=== PATIENT | male | born 1960 | race African-American/Black ===

== ENCOUNTER 2021-11-22 18:24 | Inpatient (IN) | payer BC, OTHER ==
[2021-11-22] MEDS ORDERED: DEXTROSE 50%-WATER 25 GM/50 ML DISP.SYRIN ONE ×3 (18:43→18:47)
[2021-11-22] MEDS ORDERED: CEFEPIME HCL/D5W 2 GM/50 ML BAG IVPB ONE (18:55)
[2021-11-22] MEDS ORDERED: VANCOMYCIN/WATER 2 GM/400 ML PREMIX BAG IVPB ONE (18:55)
[2021-11-22] MEDS ORDERED: SODIUM CHLORIDE 0.9% 500 ML INFUS.BAG IV ONE (18:58)
[2021-11-22 20:24] LABS: BASO % 0.1 % (0-2.0); EOS % 0.1 % (0-4.5); HEMATOCRIT 26.8 % (35.4-49); HEMOGLOBIN 8.4 GM/dL (11.7-16.9); LYMPH % 2.9 % (8-40); MCH 25.1 pg (25.7-33.7); MCHC 31.5 g/dl (32.0-35.9); MEAN CELL VOLUME 79.6 fl (80-96); MEAN PLT VOLUME 7.5 fl (7.5-11.1); MONO % 3.6 % (3.8-10.2); NEUT % 93.3 % (42.8-82.8); PLATELET COUNT 379 10^3/uL (134-434); RBC 3.37 M/mm3 (4.00-5.60); RDW 18.5 % (11.9-15.9); WHITE BLOOD COUNT 12.3 K/mm3 (4.0-10.0)
[2021-11-22] MEDS ORDERED: CEFEPIME 2 GM/100 ML BAG IVPB ONE (20:31)
[2021-11-22 20:33] LABS: INR 1.28 (0.83-1.09); PROTHROMBIN TIME (PATIENT) 14.7 SEC (9.7-13.0)
[2021-11-22 20:35] LABS: ACTIVATED PTT 35.9 SECONDS (25.2-36.5)
[2021-11-22 20:42] LABS: CHLORIDE 97 mmol/L (98-107); SODIUM 135 mmol/L (136-145)
[2021-11-22 20:44] LABS: CALCIUM 7.8 mg/dL (8.5-10.1)
[2021-11-22 20:45] LABS: ALBUMIN 2.1 g/dl (3.4-5.0); ANION GAP 12 MMOL/L (8-16); BLOOD UREA NITROGEN 48.6 mg/dL (7-18); CO2 27 mmol/L (21-32); GLUCOSE,RANDOM 248 mg/dL (74-106)
[2021-11-22 20:48] LABS: CREATININE 3.4 mg/dL (0.55-1.3); SGOT/AST 18 U/L (15-37); SGPT/ALT 18 U/L (13-61)
[2021-11-22 20:50] LABS: BILIRUBIN,TOTAL 0.2 mg/dL (0.2-1); TOT PROT 6.8 g/dl (6.4-8.2)
[2021-11-22 20:51] LABS: ALK PHOS 91 U/L (45-117)
[2021-11-22 20:52] LABS: VENOUS O2 SATURATION 29.1 % (70-80); VENOUS PH 7.265 (7.310-7.410)
[2021-11-22 20:55] LABS: ANISOCYTOSIS 2+; MACROCYTOSIS 0
[2021-11-22 21:05] LABS: EPI CELLS 10 /uL (0-25.1); HYALINE CASTS 1 /uL (0-3.1); PH,URINE 5.5 (5.0-8.0); URINE APPEARANCE CLEAR; URINE BACTERIA 73 /uL (0-1359); URINE BILIRUBIN NEGATIVE (NEGATIVE); URINE COLOR YELLOW; URINE GLUCOSE (UA) NEGATIVE (NEGATIVE); URINE KETONE NEGATIVE (NEGATIVE); URINE LEUK ESTERASE NEGATIVE (NEGATIVE); URINE NITRITE NEGATIVE (NEGATIVE); URINE PROTEIN 2+ (NEGATIVE); URINE RBC 41 /uL (0-23.9); URINE UROBILINOGEN 0.2 mg/dL (0.2-1.0); URINE WBC 8 /uL (0-25.8)
[2021-11-22 21:20] LABS: N-TERMINAL BNP 3324.8 pg/ml (5-125)
[2021-11-22 21:24] LABS: ERYTHROCYTE SEDIMENTATION RATE 108 mm/hr (0-20)
[2021-11-23] MEDS ORDERED: ALBUTEROL SO4 0.083% IH SOL 2.5 MG/3 ML VIAL.NEB. NEB SCH (08:00)
[2021-11-23] MEDS: CLOPIDOGREL BISULFATE 75 MG TABLET (FP) PO SCH (10:55)
[2021-11-23] MEDS: ASPIRIN 81 MG CHEWABLE TABLETS PO SCH (10:55)
[2021-11-23] MEDS: TIMOLOL MALEATE 0.25% GFS OPHTHALMIC SOLN 5 ML BOTTLE OU SCH (10:55)
[2021-11-23] MEDS: PANTOPRAZOLE 20 MG TABLET PO SCH (10:55)
[2021-11-23] MEDS ORDERED: ALBUTEROL SO4 0.083% IH SOL 2.5 MG/3 ML VIAL.NEB. NEB PRN (11:05)
[2021-11-23 11:10] LABS: BASO % 0.2 % (0-2.0); EOS % 0.1 % (0-4.5); HEMATOCRIT 27.7 % (35.4-49); HEMOGLOBIN 8.8 GM/dL (11.7-16.9); LYMPH % 3.7 % (8-40); MCH 25.1 pg (25.7-33.7); MCHC 31.8 g/dl (32.0-35.9); MEAN CELL VOLUME 78.7 fl (80-96); MEAN PLT VOLUME 7.2 fl (7.5-11.1); MONO % 8.1 % (3.8-10.2); NEUT % 87.9 % (42.8-82.8); PLATELET COUNT 351 10^3/uL (134-434); RBC 3.52 M/mm3 (4.00-5.60); RDW 18.4 % (11.9-15.9); WHITE BLOOD COUNT 11.6 K/mm3 (4.0-10.0)
[2021-11-23] MEDS: methylPREDNISolone NA SUCC 40 MG/1 ML VIAL IVPUSH SCH ×2 (11:21→17:07)
[2021-11-23] MEDS: ALBUTEROL SO4 2.5/IPRATROPIUM 0.5 INH SOL 3 ML VIAL.NEB. NEB SCH ×3 (11:47→20:20)
[2021-11-23 12:10] LABS: BILIRUBIN,TOTAL 0.4 mg/dL (0.2-1); BLOOD UREA NITROGEN 37.6 mg/dL (7-18); CALCIUM 8.1 mg/dL (8.5-10.1); CREATININE 2.1 mg/dL (0.55-1.3)
[2021-11-23 15:02] LABS: COCAINE, UR NEGATIVE (NEGATIVE); METHADONE, UR NEGATIVE (NEGATIVE); OPIATES, URI NEGATIVE (NEGATIVE); PHENCYCLIDINE,URINE NEGATIVE (NEGATIVE); URINE AMPHETAMINES NEGATIVE (NEGATIVE); URINE BARBITURATES NEGATIVE (NEGATIVE); URINE BENZODIAZEPINES NEGATIVE (NEGATIVE)
[2021-11-23] MEDS ORDERED: POTASSIUM CHLORIDE TABS 20 MEQ TABLET.ER (FP) PO ONE (15:15)
[2021-11-23] MEDS: ROSUVASTATIN CA 20 MG TABLET PO SCH (21:44)
[2021-11-23] MEDS: SENNOSIDES 8.6MG TABLET (FP) PO SCH (21:47)
[2021-11-23] MEDS ORDERED: VANCOMYCIN/WATER 1250 MG 1,250 MG/250 ML BAG IVPB SCH (22:00)
[2021-11-23] MEDS ORDERED: DEXTROSE 5%-WATER - 50 ML IVPB ONE (23:25)
[2021-11-23] MEDS ORDERED: AZTREONAM 1 GM VIAL (RESTRICTED TO ID) ONE (23:25)
[2021-11-23] MEDS: AZTREONAM 1 GM in DEXTROSE 5%-WATER - 50 ML IVPB SCH (23:39)
[2021-11-23] MEDS: LATANOPROST 0.005% OPHTH SOLN 2.5ML BOTTLE OU SCH (23:40)
[2021-11-23] MEDS: GABAPENTIN 100 MG CAPSULE PO SCH (23:45)
[2021-11-24] MEDS: DAPTOMYCIN IVPB SCH ×2 (00:08→22:09)
[2021-11-24] MEDS: SODIUM CHLORIDE IVPB SCH ×2 (00:08→22:09)
[2021-11-24] MEDS: ACETAMINOPHEN 500 MG TABLET (FP) PO PRN (00:09)
[2021-11-24] MEDS: methylPREDNISolone NA SUCC 40 MG/1 ML VIAL IVPUSH SCH ×3 (03:30→17:09)
[2021-11-24] MEDS ORDERED: AZTREONAM 1 GM VIAL (RESTRICTED TO ID) ONE ×3 (05:49→17:06)
[2021-11-24] MEDS ORDERED: DEXTROSE 5%-WATER - 50 ML IVPB ONE ×3 (05:49→17:06)
[2021-11-24] MEDS: AZTREONAM 1 GM in DEXTROSE 5%-WATER - 50 ML IVPB SCH ×3 (05:52→17:09)
[2021-11-24] MEDS: ALBUTEROL SO4 2.5/IPRATROPIUM 0.5 INH SOL 3 ML VIAL.NEB. NEB SCH ×4 (07:34→20:05)
[2021-11-24] MEDS ORDERED: guaiFENesin/D-M SUGAR-FREE/ACLHOL-FREE 5 ML UNIT DOSE PO PRN (09:22)
[2021-11-24] MEDS: CLOPIDOGREL BISULFATE 75 MG TABLET (FP) PO SCH (09:31)
[2021-11-24] MEDS: GABAPENTIN 100 MG CAPSULE PO SCH ×2 (09:31→22:08)
[2021-11-24] MEDS: ASPIRIN 81 MG CHEWABLE TABLETS PO SCH (09:31)
[2021-11-24] MEDS: PANTOPRAZOLE 20 MG TABLET PO SCH (09:31)
[2021-11-24] MEDS: TIMOLOL MALEATE 0.25% GFS OPHTHALMIC SOLN 5 ML BOTTLE OU SCH (09:32)
[2021-11-24 11:22] LABS: ARTERIAL BLD GAS O2 SATURATION 94.1 % (95-98); ARTERIAL BLOOD GAS BASE EXCESS 0.5 mmol/L (-2-2); ARTERIAL BLOOD GAS PO2 73.7 mmHg (80-100); ARTERIAL BLOOD GAS pH 7.358 (7.350-7.450)
[2021-11-24 11:23] LABS: ALLENS TEST POSITIVE
[2021-11-24 16:59] LABS: CALCIUM 8.2 mg/dL (8.5-10.1)
[2021-11-24 17:00] LABS: BLOOD UREA NITROGEN 41.7 mg/dL (7-18)
[2021-11-24 17:03] LABS: CREATININE 1.8 mg/dL (0.55-1.3)
[2021-11-24] MEDS ORDERED: POTASSIUM CHLORIDE TABS 20 MEQ TABLET.ER (FP) PO ONE (17:38)
[2021-11-24] MEDS ORDERED: VANCOMYCIN/WATER 1250 MG 1,250 MG/250 ML BAG IVPB SCH (22:00)
[2021-11-24] MEDS: ROSUVASTATIN CA 20 MG TABLET PO SCH (22:08)
[2021-11-24] MEDS: traMADol HCL 50 MG TABLET PO PRN (22:08)
[2021-11-24] MEDS: LATANOPROST 0.005% OPHTH SOLN 2.5ML BOTTLE OU SCH (22:09)
[2021-11-24] MEDS: SENNOSIDES 8.6MG TABLET (FP) PO SCH (22:15)
[2021-11-25] MEDS ORDERED: DEXTROSE 5%-WATER - 50 ML IVPB ONE ×3 (01:43→17:02)
[2021-11-25] MEDS ORDERED: AZTREONAM 1 GM VIAL (RESTRICTED TO ID) ONE ×3 (01:43→17:02)
[2021-11-25] MEDS: AZTREONAM 1 GM in DEXTROSE 5%-WATER - 50 ML IVPB SCH ×3 (01:54→17:15)
[2021-11-25] MEDS: methylPREDNISolone NA SUCC 40 MG/1 ML VIAL IVPUSH SCH (01:54)
[2021-11-25] MEDS: ALBUTEROL SO4 2.5/IPRATROPIUM 0.5 INH SOL 3 ML VIAL.NEB. NEB SCH ×4 (07:40→20:00)
[2021-11-25 08:21] LABS: CALCIUM 8.6 mg/dL (8.5-10.1)
[2021-11-25 08:22] LABS: BLOOD UREA NITROGEN 47.1 mg/dL (7-18)
[2021-11-25 08:25] LABS: CREATININE 1.8 mg/dL (0.55-1.3)
[2021-11-25] MEDS: GABAPENTIN 100 MG CAPSULE PO SCH ×2 (09:36→21:24)
[2021-11-25] MEDS: CLOPIDOGREL BISULFATE 75 MG TABLET (FP) PO SCH (09:36)
[2021-11-25] MEDS: PANTOPRAZOLE 20 MG TABLET PO SCH (09:36)
[2021-11-25] MEDS: ASPIRIN 81 MG CHEWABLE TABLETS PO SCH (09:36)
[2021-11-25] MEDS: traMADol HCL 50 MG TABLET PO PRN ×2 (09:41→21:25)
[2021-11-25] MEDS: TIMOLOL MALEATE 0.25% GFS OPHTHALMIC SOLN 5 ML BOTTLE OU SCH (09:47)
[2021-11-25] MEDS ORDERED: TORSEMIDE 20 MG TABLET (FP) PO ONE (12:25)
[2021-11-25] MEDS: AMINO ACIDS/PROTEIN HYDROLYS 30 ML LIQUID.PKT PO SCH (17:15)
[2021-11-25] MEDS: ASCORBIC ACID 500 MG TABLET (FP) PO SCH (21:24)
[2021-11-25] MEDS: ROSUVASTATIN CA 20 MG TABLET PO SCH (21:24)
[2021-11-25] MEDS: SODIUM CHLORIDE IVPB SCH (21:25)
[2021-11-25] MEDS: DAPTOMYCIN IVPB SCH (21:25)
[2021-11-25] MEDS: LATANOPROST 0.005% OPHTH SOLN 2.5ML BOTTLE OU SCH (21:26)
[2021-11-25] MEDS: HEPARIN NA (PORCINE) 5,000 UNITS/ML 1ML VIAL SQ SCH (21:26)
[2021-11-25] MEDS: SENNOSIDES 8.6MG TABLET (FP) PO SCH (21:33)
[2021-11-26] MEDS ORDERED: AZTREONAM 1 GM VIAL (RESTRICTED TO ID) ONE ×3 (03:36→16:48)
[2021-11-26] MEDS: AZTREONAM 1 GM in DEXTROSE 5%-WATER - 50 ML IVPB SCH ×3 (03:48→17:53)
[2021-11-26] MEDS: ALBUTEROL SO4 2.5/IPRATROPIUM 0.5 INH SOL 3 ML VIAL.NEB. NEB SCH ×4 (07:35→22:04)
[2021-11-26] MEDS: AMINO ACIDS/PROTEIN HYDROLYS 30 ML LIQUID.PKT PO SCH ×2 (08:03→17:12)
[2021-11-26 08:15] LABS: BASO % 0.1 % (0-2.0); EOS % 0.1 % (0-4.5); HEMATOCRIT 31.3 % (35.4-49); HEMOGLOBIN 9.8 GM/dL (11.7-16.9); LYMPH % 4.4 % (8-40); MCH 24.7 pg (25.7-33.7); MCHC 31.3 g/dl (32.0-35.9); MEAN CELL VOLUME 78.8 fl (80-96); MEAN PLT VOLUME 7.3 fl (7.5-11.1); MONO % 8.8 % (3.8-10.2); NEUT % 86.6 % (42.8-82.8); PLATELET COUNT 425 10^3/uL (134-434); RBC 3.97 M/mm3 (4.00-5.60); RDW 19.1 % (11.9-15.9); WHITE BLOOD COUNT 13.5 K/mm3 (4.0-10.0)
[2021-11-26] MEDS ORDERED: DEXTROSE 5%-WATER - 50 ML IVPB ONE ×2 (08:23→16:48)
[2021-11-26 08:44] LABS: CALCIUM 8.5 mg/dL (8.5-10.1)
[2021-11-26 08:47] LABS: CREATININE 1.8 mg/dL (0.55-1.3)
[2021-11-26 08:49] LABS: BILIRUBIN,TOTAL 0.3 mg/dL (0.2-1); TOT PROT 7.5 g/dl (6.4-8.2)
[2021-11-26] MEDS: HEPARIN NA (PORCINE) 5,000 UNITS/ML 1ML VIAL SQ SCH ×2 (09:40→21:42)
[2021-11-26] MEDS: ASPIRIN 81 MG CHEWABLE TABLETS PO SCH (09:40)
[2021-11-26] MEDS: CLOPIDOGREL BISULFATE 75 MG TABLET (FP) PO SCH (09:40)
[2021-11-26] MEDS: GABAPENTIN 100 MG CAPSULE PO SCH ×2 (09:40→21:42)
[2021-11-26] MEDS: PANTOPRAZOLE 20 MG TABLET PO SCH (09:40)
[2021-11-26] MEDS: ASCORBIC ACID 500 MG TABLET (FP) PO SCH ×2 (09:40→21:43)
[2021-11-26] MEDS: ACETAMINOPHEN 500 MG TABLET (FP) PO PRN (10:00)
[2021-11-26] MEDS: ZINC SULFATE 220 MG CAPSULE (FP) PO SCH (10:01)
[2021-11-26] MEDS: MULTIVITAMINS THER W-MINERALS COMBO TABLET (FP) PO SCH (10:02)
[2021-11-26] MEDS: TIMOLOL MALEATE 0.25% GFS OPHTHALMIC SOLN 5 ML BOTTLE OU SCH (10:05)
[2021-11-26] MEDS: TORSEMIDE 20 MG TABLET (FP) PO SCH (11:22)
[2021-11-26] MEDS: INSULIN SLIDING SCALE (NOVOLOG) 1 VIAL SQ SCH (17:06)
[2021-11-26] MEDS: SENNOSIDES 8.6MG TABLET (FP) PO SCH (21:43)
[2021-11-26] MEDS: SODIUM CHLORIDE IVPB SCH (21:44)
[2021-11-26] MEDS: DAPTOMYCIN IVPB SCH (21:44)
[2021-11-26] MEDS: LATANOPROST 0.005% OPHTH SOLN 2.5ML BOTTLE OU SCH (21:59)
[2021-11-26] MEDS: traMADol HCL 50 MG TABLET PO PRN (22:43)
[2021-11-27] MEDS ORDERED: AZTREONAM 1 GM VIAL (RESTRICTED TO ID) ONE ×2 (03:00→08:18)
[2021-11-27] MEDS ORDERED: DEXTROSE 5%-WATER - 50 ML IVPB ONE ×2 (03:00→08:19)
[2021-11-27] MEDS: AZTREONAM 1 GM in DEXTROSE 5%-WATER - 50 ML IVPB SCH ×2 (03:04→09:15)
[2021-11-27] MEDS ORDERED: glipiZIDE 5 MG TABLET (FP) ONE (06:32)
[2021-11-27] MEDS: INSULIN SLIDING SCALE (NOVOLOG) 1 VIAL SQ SCH ×3 (06:45→16:31)
[2021-11-27] MEDS ORDERED: glipiZIDE 10 MG TABLET (FP) PO SCH (07:00)
[2021-11-27] MEDS: ALBUTEROL SO4 2.5/IPRATROPIUM 0.5 INH SOL 3 ML VIAL.NEB. NEB SCH ×4 (07:30→19:28)
[2021-11-27] MEDS: AMINO ACIDS/PROTEIN HYDROLYS 30 ML LIQUID.PKT PO SCH ×2 (09:15→16:32)
[2021-11-27] MEDS: TORSEMIDE 20 MG TABLET (FP) PO SCH (09:16)
[2021-11-27] MEDS: HEPARIN NA (PORCINE) 5,000 UNITS/ML 1ML VIAL SQ SCH ×2 (09:16→23:11)
[2021-11-27] MEDS: ASCORBIC ACID 500 MG TABLET (FP) PO SCH ×2 (09:16→23:12)
[2021-11-27] MEDS: GABAPENTIN 100 MG CAPSULE PO SCH ×2 (09:16→23:12)
[2021-11-27] MEDS: CLOPIDOGREL BISULFATE 75 MG TABLET (FP) PO SCH (09:16)
[2021-11-27] MEDS: ZINC SULFATE 220 MG CAPSULE (FP) PO SCH (09:16)
[2021-11-27] MEDS: PANTOPRAZOLE 20 MG TABLET PO SCH (09:17)
[2021-11-27] MEDS: ASPIRIN 81 MG CHEWABLE TABLETS PO SCH (09:17)
[2021-11-27] MEDS: TIMOLOL MALEATE 0.25% GFS OPHTHALMIC SOLN 5 ML BOTTLE OU SCH (09:17)
[2021-11-27] MEDS: MULTIVITAMINS THER W-MINERALS COMBO TABLET (FP) PO SCH (09:17)
[2021-11-27 09:50] LABS: CALCIUM 8.8 mg/dL (8.5-10.1)
[2021-11-27 09:51] LABS: ALBUMIN 2.1 g/dl (3.4-5.0); BLOOD UREA NITROGEN 52.8 mg/dL (7-18)
[2021-11-27 09:54] LABS: CREATININE 1.6 mg/dL (0.55-1.3)
[2021-11-27 09:55] LABS: BILIRUBIN,TOTAL 0.4 mg/dL (0.2-1); TOT PROT 7.6 g/dl (6.4-8.2)
[2021-11-27] MEDS ORDERED: DEXTROSE 5%-WATER 100 ML IVPB ONE ×2 (17:34→17:35)
[2021-11-27] MEDS ORDERED: MEROPENEM 1 GM VIAL (RESTRICTED TO ID) IVPB ONE ×2 (17:34→17:35)
[2021-11-27] MEDS ORDERED: MEROPENEM 1 GM in DEXTROSE 5%-WATER 100 ML IVPB SCH (18:00)
[2021-11-27] MEDS ORDERED: ALBUTEROL SO4 0.083% IH SOL 2.5 MG/3 ML VIAL.NEB. NEB PRN (21:45)
[2021-11-27] MEDS: DAPTOMYCIN IVPB SCH (23:11)
[2021-11-27] MEDS: SODIUM CHLORIDE IVPB SCH (23:11)
[2021-11-27] MEDS: SENNOSIDES 8.6MG TABLET (FP) PO SCH (23:12)
[2021-11-28] MEDS: LATANOPROST 0.005% OPHTH SOLN 2.5ML BOTTLE OU SCH ×2 (00:03→22:36)
[2021-11-28] MEDS ORDERED: MEROPENEM 1 GM VIAL (RESTRICTED TO ID) IVPB ONE ×4 (01:14→22:23)
[2021-11-28] MEDS ORDERED: DEXTROSE 5%-WATER 100 ML IVPB ONE ×4 (01:15→22:23)
[2021-11-28] MEDS: MEROPENEM 1 GM in DEXTROSE 5%-WATER 100 ML IVPB SCH ×3 (01:24→16:59)
[2021-11-28] MEDS ORDERED: glipiZIDE 5 MG TABLET (FP) ONE (06:13)
[2021-11-28] MEDS: INSULIN SLIDING SCALE (NOVOLOG) 1 VIAL SQ SCH ×3 (06:14→17:03)
[2021-11-28] MEDS: glipiZIDE 10 MG TABLET (FP) PO SCH (06:16)
[2021-11-28] MEDS: ALBUTEROL SO4 2.5/IPRATROPIUM 0.5 INH SOL 3 ML VIAL.NEB. NEB SCH ×4 (08:10→20:00)
[2021-11-28] MEDS: AMINO ACIDS/PROTEIN HYDROLYS 30 ML LIQUID.PKT PO SCH ×2 (11:18→16:51)
[2021-11-28] MEDS: TORSEMIDE 20 MG TABLET (FP) PO SCH (11:19)
[2021-11-28] MEDS: ASPIRIN 81 MG CHEWABLE TABLETS PO SCH (11:19)
[2021-11-28] MEDS: ASCORBIC ACID 500 MG TABLET (FP) PO SCH ×2 (11:20→22:33)
[2021-11-28] MEDS: ZINC SULFATE 220 MG CAPSULE (FP) PO SCH (11:20)
[2021-11-28] MEDS: GABAPENTIN 100 MG CAPSULE PO SCH ×2 (11:20→22:33)
[2021-11-28] MEDS: PANTOPRAZOLE 20 MG TABLET PO SCH (11:20)
[2021-11-28] MEDS: CLOPIDOGREL BISULFATE 75 MG TABLET (FP) PO SCH (11:20)
[2021-11-28] MEDS: MULTIVITAMINS THER W-MINERALS COMBO TABLET (FP) PO SCH (11:20)
[2021-11-28] MEDS: HEPARIN NA (PORCINE) 5,000 UNITS/ML 1ML VIAL SQ SCH ×2 (11:21→22:33)
[2021-11-28] MEDS: TIMOLOL MALEATE 0.25% GFS OPHTHALMIC SOLN 5 ML BOTTLE OU SCH (12:09)
[2021-11-28 14:17] LABS: CALCIUM 8.3 mg/dL (8.5-10.1)
[2021-11-28 14:18] LABS: BLOOD UREA NITROGEN 45.6 mg/dL (7-18)
[2021-11-28 14:21] LABS: CREATININE 1.5 mg/dL (0.55-1.3)
[2021-11-28 14:23] LABS: BILIRUBIN,TOTAL 0.4 mg/dL (0.2-1); TOT PROT 6.7 g/dl (6.4-8.2)
[2021-11-28] MEDS: SODIUM CHLORIDE IVPB SCH (22:32)
[2021-11-28] MEDS: DAPTOMYCIN IVPB SCH (22:32)
[2021-11-28] MEDS: POTASSIUM CHLORIDE TABS 20 MEQ TABLET.ER (FP) PO SCH (22:33)
[2021-11-28] MEDS: SENNOSIDES 8.6MG TABLET (FP) PO SCH (22:34)
[2021-11-29] MEDS: MEROPENEM 1 GM in DEXTROSE 5%-WATER 100 ML IVPB SCH ×2 (02:00→15:58)
[2021-11-29] MEDS ORDERED: glipiZIDE 5 MG TABLET (FP) ONE (05:42)
[2021-11-29] MEDS: glipiZIDE 10 MG TABLET (FP) PO SCH (06:01)
[2021-11-29] MEDS: INSULIN SLIDING SCALE (NOVOLOG) 1 VIAL SQ SCH ×3 (07:49→16:53)
[2021-11-29] MEDS: ALBUTEROL SO4 2.5/IPRATROPIUM 0.5 INH SOL 3 ML VIAL.NEB. NEB SCH ×4 (08:11→20:05)
[2021-11-29] MEDS: AMINO ACIDS/PROTEIN HYDROLYS 30 ML LIQUID.PKT PO SCH ×2 (08:58→16:49)
[2021-11-29] MEDS ORDERED: MEROPENEM 1 GM VIAL (RESTRICTED TO ID) IVPB ONE (09:51)
[2021-11-29] MEDS ORDERED: DEXTROSE 5%-WATER 100 ML IVPB ONE (09:51)
[2021-11-29] MEDS: HEPARIN NA (PORCINE) 5,000 UNITS/ML 1ML VIAL SQ SCH ×2 (10:04→21:30)
[2021-11-29] MEDS: CLOPIDOGREL BISULFATE 75 MG TABLET (FP) PO SCH (10:04)
[2021-11-29] MEDS: ASPIRIN 81 MG CHEWABLE TABLETS PO SCH (10:05)
[2021-11-29] MEDS: ASCORBIC ACID 500 MG TABLET (FP) PO SCH ×2 (10:05→21:30)
[2021-11-29] MEDS: ZINC SULFATE 220 MG CAPSULE (FP) PO SCH (10:05)
[2021-11-29] MEDS: POTASSIUM CHLORIDE TABS 20 MEQ TABLET.ER (FP) PO SCH ×2 (10:05→21:31)
[2021-11-29] MEDS: PANTOPRAZOLE 20 MG TABLET PO SCH (10:05)
[2021-11-29] MEDS: MULTIVITAMINS THER W-MINERALS COMBO TABLET (FP) PO SCH (10:05)
[2021-11-29] MEDS: GABAPENTIN 100 MG CAPSULE PO SCH ×2 (10:05→21:30)
[2021-11-29] MEDS: TIMOLOL MALEATE 0.25% GFS OPHTHALMIC SOLN 5 ML BOTTLE OU SCH (10:06)
[2021-11-29] MEDS: TORSEMIDE 20 MG TABLET (FP) PO SCH (10:06)
[2021-11-29 10:26] LABS: BLOOD UREA NITROGEN 38.9 mg/dL (7-18); CALCIUM 8.5 mg/dL (8.5-10.1)
[2021-11-29 10:29] LABS: CREATININE 1.4 mg/dL (0.55-1.3)
[2021-11-29 10:30] LABS: BILIRUBIN,TOTAL 0.5 mg/dL (0.2-1); TOT PROT 7.3 g/dl (6.4-8.2)
[2021-11-29 20:33] VITALS: BMI 48.8
[2021-11-29] MEDS: SENNOSIDES 8.6MG TABLET (FP) PO SCH (21:30)
[2021-11-29] MEDS: DAPTOMYCIN IVPB SCH (21:31)
[2021-11-29] MEDS: SODIUM CHLORIDE IVPB SCH (21:31)
[2021-11-29] MEDS: LATANOPROST 0.005% OPHTH SOLN 2.5ML BOTTLE OU SCH (21:32)
[2021-11-30] MEDS ORDERED: DEXTROSE 5%-WATER 100 ML IVPB ONE ×3 (01:10→17:12)
[2021-11-30] MEDS ORDERED: MEROPENEM 1 GM VIAL (RESTRICTED TO ID) IVPB ONE ×3 (01:10→17:11)
[2021-11-30] MEDS: MEROPENEM 1 GM in DEXTROSE 5%-WATER 100 ML IVPB SCH ×4 (01:20→17:14)
[2021-11-30] MEDS: INSULIN SLIDING SCALE (NOVOLOG) 1 VIAL SQ SCH ×3 (06:32→16:42)
[2021-11-30] MEDS: glipiZIDE 10 MG TABLET (FP) PO SCH (06:35)
[2021-11-30] MEDS: AMINO ACIDS/PROTEIN HYDROLYS 30 ML LIQUID.PKT PO SCH ×2 (08:15→17:14)
[2021-11-30] MEDS: ALBUTEROL SO4 2.5/IPRATROPIUM 0.5 INH SOL 3 ML VIAL.NEB. NEB SCH ×4 (08:20→21:03)
[2021-11-30] MEDS: PANTOPRAZOLE 20 MG TABLET PO SCH (09:53)
[2021-11-30] MEDS: GABAPENTIN 100 MG CAPSULE PO SCH ×2 (09:53→21:56)
[2021-11-30] MEDS: CLOPIDOGREL BISULFATE 75 MG TABLET (FP) PO SCH (09:53)
[2021-11-30] MEDS: ASCORBIC ACID 500 MG TABLET (FP) PO SCH ×2 (09:53→21:55)
[2021-11-30] MEDS: ASPIRIN 81 MG CHEWABLE TABLETS PO SCH (09:53)
[2021-11-30] MEDS: POTASSIUM CHLORIDE TABS 20 MEQ TABLET.ER (FP) PO SCH ×2 (09:53→21:56)
[2021-11-30] MEDS: ZINC SULFATE 220 MG CAPSULE (FP) PO SCH (09:53)
[2021-11-30] MEDS: MULTIVITAMINS THER W-MINERALS COMBO TABLET (FP) PO SCH (09:53)
[2021-11-30] MEDS: HEPARIN NA (PORCINE) 5,000 UNITS/ML 1ML VIAL SQ SCH ×2 (09:53→21:55)
[2021-11-30] MEDS: TIMOLOL MALEATE 0.25% GFS OPHTHALMIC SOLN 5 ML BOTTLE OU SCH (09:54)
[2021-11-30] MEDS: TORSEMIDE 20 MG TABLET (FP) PO SCH (09:54)
[2021-11-30] MEDS: LATANOPROST 0.005% OPHTH SOLN 2.5ML BOTTLE OU SCH (21:56)
[2021-11-30] MEDS: SENNOSIDES 8.6MG TABLET (FP) PO SCH (21:56)
[2021-11-30] MEDS: DAPTOMYCIN IVPB SCH (22:51)
[2021-11-30] MEDS: SODIUM CHLORIDE IVPB SCH (22:51)
[2021-12-01] MEDS ORDERED: DEXTROSE 5%-WATER 100 ML IVPB ONE ×3 (01:31→18:04)
[2021-12-01] MEDS ORDERED: MEROPENEM 1 GM VIAL (RESTRICTED TO ID) IVPB ONE ×3 (01:31→18:03)
[2021-12-01] MEDS: MEROPENEM 1 GM in DEXTROSE 5%-WATER 100 ML IVPB SCH ×3 (01:36→18:21)
[2021-12-01] MEDS: ACETAMINOPHEN 500 MG TABLET (FP) PO PRN (03:47)
[2021-12-01] MEDS: guaiFENesin/D-M SUGAR-FREE/ACLHOL-FREE 5 ML UNIT DOSE PO PRN (03:50)
[2021-12-01] MEDS ORDERED: glipiZIDE 5 MG TABLET (FP) ONE (05:55)
[2021-12-01] MEDS: INSULIN SLIDING SCALE (NOVOLOG) 1 VIAL SQ SCH ×3 (06:08→18:22)
[2021-12-01] MEDS: glipiZIDE 10 MG TABLET (FP) PO SCH (06:10)
[2021-12-01] MEDS: ALBUTEROL SO4 2.5/IPRATROPIUM 0.5 INH SOL 3 ML VIAL.NEB. NEB SCH ×4 (08:06→20:30)
[2021-12-01] MEDS: ASPIRIN 81 MG CHEWABLE TABLETS PO SCH (10:28)
[2021-12-01] MEDS: HEPARIN NA (PORCINE) 5,000 UNITS/ML 1ML VIAL SQ SCH ×2 (10:28→21:44)
[2021-12-01] MEDS: AMINO ACIDS/PROTEIN HYDROLYS 30 ML LIQUID.PKT PO SCH ×2 (10:28→18:21)
[2021-12-01] MEDS: MULTIVITAMINS THER W-MINERALS COMBO TABLET (FP) PO SCH (10:28)
[2021-12-01] MEDS: POTASSIUM CHLORIDE TABS 20 MEQ TABLET.ER (FP) PO SCH ×2 (10:28→21:43)
[2021-12-01] MEDS: PANTOPRAZOLE 20 MG TABLET PO SCH (10:29)
[2021-12-01] MEDS: GABAPENTIN 100 MG CAPSULE PO SCH ×2 (10:29→21:43)
[2021-12-01] MEDS: CLOPIDOGREL BISULFATE 75 MG TABLET (FP) PO SCH (10:29)
[2021-12-01] MEDS: ZINC SULFATE 220 MG CAPSULE (FP) PO SCH (10:29)
[2021-12-01] MEDS: ASCORBIC ACID 500 MG TABLET (FP) PO SCH ×2 (10:29→21:43)
[2021-12-01 11:34] LABS: BASO % 0.3 % (0-2.0); EOS % 3.4 % (0-4.5); HEMATOCRIT 26.8 % (35.4-49); HEMOGLOBIN 8.5 GM/dL (11.7-16.9); LYMPH % 15.3 % (8-40); MCHC 31.6 g/dl (32.0-35.9); MEAN PLT VOLUME 7.7 fl (7.5-11.1); MONO % 12.7 % (3.8-10.2); NEUT % 68.3 % (42.8-82.8); PLATELET COUNT 481 10^3/uL (134-434); WHITE BLOOD COUNT 12.5 K/mm3 (4.0-10.0)
[2021-12-01] MEDS: TIMOLOL MALEATE 0.25% GFS OPHTHALMIC SOLN 5 ML BOTTLE OU SCH (11:36)
[2021-12-01] MEDS: TORSEMIDE 20 MG TABLET (FP) PO SCH (12:34)
[2021-12-01 12:47] LABS: CALCIUM 8.3 mg/dL (8.5-10.1)
[2021-12-01 12:49] LABS: BLOOD UREA NITROGEN 31.2 mg/dL (7-18)
[2021-12-01 12:52] LABS: CREATININE 1.3 mg/dL (0.55-1.3)
[2021-12-01 12:53] LABS: BILIRUBIN,TOTAL 0.5 mg/dL (0.2-1); TOT PROT 6.9 g/dl (6.4-8.2)
[2021-12-01] MEDS: LATANOPROST 0.005% OPHTH SOLN 2.5ML BOTTLE OU SCH (21:43)
[2021-12-01] MEDS: SENNOSIDES 8.6MG TABLET (FP) PO SCH (21:43)
[2021-12-01] MEDS: DAPTOMYCIN IVPB SCH (22:34)
[2021-12-01] MEDS: SODIUM CHLORIDE IVPB SCH (22:34)
[2021-12-02] MEDS: MEROPENEM 1 GM in DEXTROSE 5%-WATER 100 ML IVPB SCH ×3 (03:00→17:33)
[2021-12-02] MEDS ORDERED: MEROPENEM 1 GM VIAL (RESTRICTED TO ID) IVPB ONE ×3 (03:06→17:28)
[2021-12-02] MEDS ORDERED: DEXTROSE 5%-WATER 100 ML IVPB ONE ×3 (03:06→17:28)
[2021-12-02] MEDS: guaiFENesin/D-M SUGAR-FREE/ACLHOL-FREE 5 ML UNIT DOSE PO PRN (04:53)
[2021-12-02] MEDS ORDERED: glipiZIDE 5 MG TABLET (FP) ONE ×2 (06:05→06:06)
[2021-12-02] MEDS: INSULIN SLIDING SCALE (NOVOLOG) 1 VIAL SQ SCH ×3 (06:10→17:31)
[2021-12-02] MEDS: glipiZIDE 10 MG TABLET (FP) PO SCH (06:12)
[2021-12-02] MEDS: ALBUTEROL SO4 2.5/IPRATROPIUM 0.5 INH SOL 3 ML VIAL.NEB. NEB SCH ×4 (08:35→20:29)
[2021-12-02] MEDS: GABAPENTIN 100 MG CAPSULE PO SCH ×2 (11:06→21:29)
[2021-12-02] MEDS: PANTOPRAZOLE 20 MG TABLET PO SCH (11:07)
[2021-12-02] MEDS: ASCORBIC ACID 500 MG TABLET (FP) PO SCH ×2 (11:07→21:30)
[2021-12-02] MEDS: CLOPIDOGREL BISULFATE 75 MG TABLET (FP) PO SCH (11:07)
[2021-12-02] MEDS: POTASSIUM CHLORIDE TABS 20 MEQ TABLET.ER (FP) PO SCH ×2 (11:07→21:30)
[2021-12-02] MEDS: AMINO ACIDS/PROTEIN HYDROLYS 30 ML LIQUID.PKT PO SCH ×2 (11:08→17:44)
[2021-12-02] MEDS: HEPARIN NA (PORCINE) 5,000 UNITS/ML 1ML VIAL SQ SCH ×2 (11:08→21:29)
[2021-12-02] MEDS: ASPIRIN 81 MG CHEWABLE TABLETS PO SCH (11:08)
[2021-12-02] MEDS: MULTIVITAMINS THER W-MINERALS COMBO TABLET (FP) PO SCH (11:08)
[2021-12-02] MEDS: TORSEMIDE 20 MG TABLET (FP) PO SCH (11:09)
[2021-12-02] MEDS: TIMOLOL MALEATE 0.25% GFS OPHTHALMIC SOLN 5 ML BOTTLE OU SCH (11:10)
[2021-12-02 11:39] LABS: ALBUMIN 1.9 g/dl (3.4-5.0); BLOOD UREA NITROGEN 28.2 mg/dL (7-18); CALCIUM 8.5 mg/dL (8.5-10.1)
[2021-12-02 11:42] LABS: CREATININE 1.2 mg/dL (0.55-1.3); PHOSPHOROUS 3.2 mg/dL (2.5-4.9)
[2021-12-02 11:43] LABS: BILIRUBIN,TOTAL 0.7 mg/dL (0.2-1); TOT PROT 7.3 g/dl (6.4-8.2)
[2021-12-02] MEDS: ZINC SULFATE 220 MG CAPSULE (FP) PO SCH (15:31)
[2021-12-02] MEDS: ACETAMINOPHEN 500 MG TABLET (FP) PO PRN (17:32)
[2021-12-02] MEDS: guaiFENesin 200 MG/10 ML 10 ML UNIT-DOSE CUPS PO PRN (20:01)
[2021-12-02] MEDS: SODIUM CHLORIDE IVPB SCH (21:30)
[2021-12-02] MEDS: DAPTOMYCIN IVPB SCH (21:30)
[2021-12-02] MEDS: SENNOSIDES 8.6MG TABLET (FP) PO SCH (21:30)
[2021-12-02] MEDS: LATANOPROST 0.005% OPHTH SOLN 2.5ML BOTTLE OU SCH (21:31)
[2021-12-03] MEDS ORDERED: MEROPENEM 1 GM VIAL (RESTRICTED TO ID) IVPB ONE ×3 (02:38→17:00)
[2021-12-03] MEDS ORDERED: DEXTROSE 5%-WATER 100 ML IVPB ONE ×3 (02:38→17:00)
[2021-12-03] MEDS: MEROPENEM 1 GM in DEXTROSE 5%-WATER 100 ML IVPB SCH ×3 (03:07→17:14)
[2021-12-03] MEDS ORDERED: glipiZIDE 5 MG TABLET (FP) ONE (05:05)
[2021-12-03] MEDS: INSULIN SLIDING SCALE (NOVOLOG) 1 VIAL SQ SCH ×3 (06:20→17:12)
[2021-12-03] MEDS: glipiZIDE 10 MG TABLET (FP) PO SCH (06:21)
[2021-12-03] MEDS: AMINO ACIDS/PROTEIN HYDROLYS 30 ML LIQUID.PKT PO SCH ×2 (08:26→17:15)
[2021-12-03] MEDS: ASPIRIN 81 MG CHEWABLE TABLETS PO SCH (09:52)
[2021-12-03] MEDS: POTASSIUM CHLORIDE TABS 20 MEQ TABLET.ER (FP) PO SCH ×2 (09:52→21:54)
[2021-12-03] MEDS: GABAPENTIN 100 MG CAPSULE PO SCH ×2 (09:52→21:53)
[2021-12-03] MEDS: ZINC SULFATE 220 MG CAPSULE (FP) PO SCH (09:52)
[2021-12-03] MEDS: HEPARIN NA (PORCINE) 5,000 UNITS/ML 1ML VIAL SQ SCH ×2 (09:52→21:52)
[2021-12-03] MEDS: MULTIVITAMINS THER W-MINERALS COMBO TABLET (FP) PO SCH (09:52)
[2021-12-03] MEDS: ASCORBIC ACID 500 MG TABLET (FP) PO SCH ×2 (09:52→21:54)
[2021-12-03] MEDS: PANTOPRAZOLE 20 MG TABLET PO SCH (09:52)
[2021-12-03] MEDS: CLOPIDOGREL BISULFATE 75 MG TABLET (FP) PO SCH (09:52)
[2021-12-03] MEDS: TIMOLOL MALEATE 0.25% GFS OPHTHALMIC SOLN 5 ML BOTTLE OU SCH (09:53)
[2021-12-03] MEDS: TORSEMIDE 20 MG TABLET (FP) PO SCH (09:55)
[2021-12-03 13:37] LABS: CALCIUM 8.4 mg/dL (8.5-10.1)
[2021-12-03 13:38] LABS: CREATININE 1.2 mg/dL (0.55-1.3)
[2021-12-03 13:40] LABS: BILIRUBIN,TOTAL 0.9 mg/dL (0.2-1); TOT PROT 7.3 g/dl (6.4-8.2)
[2021-12-03] MEDS: DAPTOMYCIN IVPB SCH (21:52)
[2021-12-03] MEDS: SODIUM CHLORIDE IVPB SCH (21:52)
[2021-12-03] MEDS: LATANOPROST 0.005% OPHTH SOLN 2.5ML BOTTLE OU SCH (21:54)
[2021-12-03] MEDS: SENNOSIDES 8.6MG TABLET (FP) PO SCH (21:54)
[2021-12-04] MEDS ORDERED: MEROPENEM 1 GM VIAL (RESTRICTED TO ID) IVPB ONE ×3 (01:24→18:15)
[2021-12-04] MEDS ORDERED: DEXTROSE 5%-WATER 100 ML IVPB ONE ×3 (01:24→18:15)
[2021-12-04] MEDS: MEROPENEM 1 GM in DEXTROSE 5%-WATER 100 ML IVPB SCH ×3 (01:44→18:25)
[2021-12-04] MEDS ORDERED: glipiZIDE 5 MG TABLET (FP) ONE (05:43)
[2021-12-04] MEDS: INSULIN SLIDING SCALE (NOVOLOG) 1 VIAL SQ SCH ×3 (06:39→18:03)
[2021-12-04] MEDS: glipiZIDE 10 MG TABLET (FP) PO SCH (06:41)
[2021-12-04] MEDS: ACETAMINOPHEN 500 MG TABLET (FP) PO PRN ×2 (06:56→18:26)
[2021-12-04] MEDS: POTASSIUM CHLORIDE TABS 20 MEQ TABLET.ER (FP) PO SCH ×2 (10:40→23:11)
[2021-12-04] MEDS: MULTIVITAMINS THER W-MINERALS COMBO TABLET (FP) PO SCH (10:40)
[2021-12-04] MEDS: ASCORBIC ACID 500 MG TABLET (FP) PO SCH ×2 (10:40→23:11)
[2021-12-04] MEDS: ASPIRIN 81 MG CHEWABLE TABLETS PO SCH (10:40)
[2021-12-04] MEDS: ZINC SULFATE 220 MG CAPSULE (FP) PO SCH (10:40)
[2021-12-04] MEDS: HEPARIN NA (PORCINE) 5,000 UNITS/ML 1ML VIAL SQ SCH ×2 (10:40→23:11)
[2021-12-04] MEDS: CLOPIDOGREL BISULFATE 75 MG TABLET (FP) PO SCH (10:41)
[2021-12-04] MEDS: PANTOPRAZOLE 20 MG TABLET PO SCH (10:41)
[2021-12-04] MEDS: GABAPENTIN 100 MG CAPSULE PO SCH ×2 (10:41→23:11)
[2021-12-04] MEDS: TORSEMIDE 20 MG TABLET (FP) PO SCH (10:41)
[2021-12-04] MEDS: AMINO ACIDS/PROTEIN HYDROLYS 30 ML LIQUID.PKT PO SCH ×2 (10:42→18:25)
[2021-12-04] MEDS: TIMOLOL MALEATE 0.25% GFS OPHTHALMIC SOLN 5 ML BOTTLE OU SCH (10:43)
[2021-12-04] MEDS: DAPTOMYCIN IVPB SCH (22:24)
[2021-12-04] MEDS: SODIUM CHLORIDE IVPB SCH (22:24)
[2021-12-04] MEDS: LATANOPROST 0.005% OPHTH SOLN 2.5ML BOTTLE OU SCH (22:46)
[2021-12-04] MEDS: SENNOSIDES 8.6MG TABLET (FP) PO SCH (23:09)
[2021-12-05] MEDS ORDERED: MEROPENEM 1 GM VIAL (RESTRICTED TO ID) IVPB ONE ×3 (01:10→17:35)
[2021-12-05] MEDS ORDERED: DEXTROSE 5%-WATER 100 ML IVPB ONE ×3 (01:11→17:36)
[2021-12-05] MEDS: MEROPENEM 1 GM in DEXTROSE 5%-WATER 100 ML IVPB SCH ×3 (01:45→17:38)
[2021-12-05] MEDS ORDERED: glipiZIDE 5 MG TABLET (FP) ONE (05:11)
[2021-12-05] MEDS: INSULIN SLIDING SCALE (NOVOLOG) 1 VIAL SQ SCH ×3 (06:06→16:32)
[2021-12-05] MEDS: glipiZIDE 10 MG TABLET (FP) PO SCH (07:57)
[2021-12-05] MEDS: ASCORBIC ACID 500 MG TABLET (FP) PO SCH ×2 (09:45→23:31)
[2021-12-05] MEDS: ASPIRIN 81 MG CHEWABLE TABLETS PO SCH (09:45)
[2021-12-05] MEDS: CLOPIDOGREL BISULFATE 75 MG TABLET (FP) PO SCH (09:45)
[2021-12-05] MEDS: GABAPENTIN 100 MG CAPSULE PO SCH ×2 (09:45→23:30)
[2021-12-05] MEDS: PANTOPRAZOLE 20 MG TABLET PO SCH (09:45)
[2021-12-05] MEDS: POTASSIUM CHLORIDE TABS 20 MEQ TABLET.ER (FP) PO SCH ×2 (09:45→23:31)
[2021-12-05] MEDS: ZINC SULFATE 220 MG CAPSULE (FP) PO SCH (09:45)
[2021-12-05] MEDS: MULTIVITAMINS THER W-MINERALS COMBO TABLET (FP) PO SCH (09:45)
[2021-12-05] MEDS: TIMOLOL MALEATE 0.25% GFS OPHTHALMIC SOLN 5 ML BOTTLE OU SCH (09:46)
[2021-12-05] MEDS: AMINO ACIDS/PROTEIN HYDROLYS 30 ML LIQUID.PKT PO SCH ×2 (09:46→17:38)
[2021-12-05] MEDS: TORSEMIDE 20 MG TABLET (FP) PO SCH (09:48)
[2021-12-05 11:51] LABS: BASO % 0.5 % (0-2.0); EOS % 0.6 % (0-4.5); HEMATOCRIT 28.8 % (35.4-49); LYMPH % 6.3 % (8-40); MCH 25.1 pg (25.7-33.7); MCHC 31.3 g/dl (32.0-35.9); MEAN CELL VOLUME 80.2 fl (80-96); MEAN PLT VOLUME 7.9 fl (7.5-11.1); MONO % 3.9 % (3.8-10.2); NEUT % 88.7 % (42.8-82.8); PLATELET COUNT 506 10^3/uL (134-434); RBC 3.59 M/mm3 (4.00-5.60); RDW 17.5 % (11.9-15.9); WHITE BLOOD COUNT 14.4 K/mm3 (4.0-10.0)
[2021-12-05 12:10] LABS: ALBUMIN 1.8 g/dl (3.4-5.0); CALCIUM 8.9 mg/dL (8.5-10.1)
[2021-12-05 12:11] LABS: BLOOD UREA NITROGEN 25.4 mg/dL (7-18)
[2021-12-05 12:13] LABS: CREATININE 1.2 mg/dL (0.55-1.3)
[2021-12-05 12:15] LABS: BILIRUBIN,TOTAL 0.6 mg/dL (0.2-1); TOT PROT 7.7 g/dl (6.4-8.2)
[2021-12-05] MEDS: SENNOSIDES 8.6MG TABLET (FP) PO SCH (23:32)
[2021-12-05] MEDS: LATANOPROST 0.005% OPHTH SOLN 2.5ML BOTTLE OU SCH (23:33)
[2021-12-06] MEDS: SODIUM CHLORIDE IVPB SCH (00:41)
[2021-12-06] MEDS: DAPTOMYCIN IVPB SCH (00:41)
[2021-12-06] MEDS ORDERED: DEXTROSE 5%-WATER 100 ML IVPB ONE (04:05)
[2021-12-06] MEDS ORDERED: MEROPENEM 1 GM VIAL (RESTRICTED TO ID) IVPB ONE (04:05)
[2021-12-06] MEDS: MEROPENEM 1 GM in DEXTROSE 5%-WATER 100 ML IVPB SCH ×2 (04:07→11:09)
[2021-12-06] MEDS ORDERED: glipiZIDE 5 MG TABLET (FP) ONE (05:57)
[2021-12-06] MEDS: INSULIN SLIDING SCALE (NOVOLOG) 1 VIAL SQ SCH ×3 (06:33→16:40)
[2021-12-06] MEDS: glipiZIDE 10 MG TABLET (FP) PO SCH (06:35)
[2021-12-06] MEDS: AMINO ACIDS/PROTEIN HYDROLYS 30 ML LIQUID.PKT PO SCH ×2 (08:37→17:07)
[2021-12-06] MEDS: POTASSIUM CHLORIDE TABS 20 MEQ TABLET.ER (FP) PO SCH ×2 (11:07→22:33)
[2021-12-06] MEDS: CLOPIDOGREL BISULFATE 75 MG TABLET (FP) PO SCH (11:07)
[2021-12-06] MEDS: ASPIRIN 81 MG CHEWABLE TABLETS PO SCH (11:07)
[2021-12-06] MEDS: ASCORBIC ACID 500 MG TABLET (FP) PO SCH ×2 (11:07→22:33)
[2021-12-06] MEDS: GABAPENTIN 100 MG CAPSULE PO SCH ×2 (11:08→22:33)
[2021-12-06] MEDS: MULTIVITAMINS THER W-MINERALS COMBO TABLET (FP) PO SCH (11:08)
[2021-12-06] MEDS: ZINC SULFATE 220 MG CAPSULE (FP) PO SCH (11:08)
[2021-12-06] MEDS: PANTOPRAZOLE 20 MG TABLET PO SCH (11:08)
[2021-12-06] MEDS: TIMOLOL MALEATE 0.25% GFS OPHTHALMIC SOLN 5 ML BOTTLE OU SCH (11:09)
[2021-12-06] MEDS: TORSEMIDE 20 MG TABLET (FP) PO SCH (12:18)
[2021-12-06] MEDS: HEPARIN NA (PORCINE) 5,000 UNITS/ML 1ML VIAL SQ SCH ×2 (13:18→22:33)
[2021-12-06] MEDS: LATANOPROST 0.005% OPHTH SOLN 2.5ML BOTTLE OU SCH (22:33)
[2021-12-06] MEDS: SENNOSIDES 8.6MG TABLET (FP) PO SCH ×2 (22:33→22:44)
[2021-12-07] MEDS: ACETAMINOPHEN 500 MG TABLET (FP) PO PRN ×2 (05:15→21:54)
[2021-12-07] MEDS: HEPARIN NA (PORCINE) 5,000 UNITS/ML 1ML VIAL SQ SCH ×3 (05:16→21:54)
[2021-12-07] MEDS: INSULIN SLIDING SCALE (NOVOLOG) 1 VIAL SQ SCH ×3 (06:03→16:36)
[2021-12-07] MEDS: glipiZIDE 10 MG TABLET (FP) PO SCH (06:26)
[2021-12-07] MEDS: GABAPENTIN 100 MG CAPSULE PO SCH ×2 (10:29→21:54)
[2021-12-07] MEDS: PANTOPRAZOLE 40 MG TABLET PO SCH (10:29)
[2021-12-07] MEDS: CLOPIDOGREL BISULFATE 75 MG TABLET (FP) PO SCH (10:29)
[2021-12-07] MEDS: AMINO ACIDS/PROTEIN HYDROLYS 30 ML LIQUID.PKT PO SCH ×2 (10:29→16:36)
[2021-12-07] MEDS: TIMOLOL MALEATE 0.25% GFS OPHTHALMIC SOLN 5 ML BOTTLE OU SCH (10:30)
[2021-12-07] MEDS: MULTIVITAMINS THER W-MINERALS COMBO TABLET (FP) PO SCH (10:30)
[2021-12-07] MEDS: ASCORBIC ACID 500 MG TABLET (FP) PO SCH ×2 (10:30→21:54)
[2021-12-07] MEDS: ASPIRIN 81 MG CHEWABLE TABLETS PO SCH (10:30)
[2021-12-07] MEDS: POTASSIUM CHLORIDE TABS 20 MEQ TABLET.ER (FP) PO SCH ×2 (10:30→21:54)
[2021-12-07] MEDS: ZINC SULFATE 220 MG CAPSULE (FP) PO SCH (10:30)
[2021-12-07 10:55] LABS: BASO % 0.7 % (0-2.0); EOS % 0.9 % (0-4.5); HEMATOCRIT 23.4 % (35.4-49); HEMOGLOBIN 7.5 GM/dL (11.7-16.9); LYMPH % 11.9 % (8-40); MCH 25.4 pg (25.7-33.7); MCHC 31.9 g/dl (32.0-35.9); MEAN CELL VOLUME 79.6 fl (80-96); MEAN PLT VOLUME 7.8 fl (7.5-11.1); MONO % 8.6 % (3.8-10.2); NEUT % 77.9 % (42.8-82.8); PLATELET COUNT 459 10^3/uL (134-434); RBC 2.94 M/mm3 (4.00-5.60); RDW 17.2 % (11.9-15.9)
[2021-12-07 11:22] LABS: BLOOD UREA NITROGEN 22.3 mg/dL (7-18)
[2021-12-07 11:24] LABS: CALCIUM 8.7 mg/dL (8.5-10.1)
[2021-12-07 11:25] LABS: ALBUMIN 1.6 g/dl (3.4-5.0)
[2021-12-07 11:26] LABS: CREATININE 1.1 mg/dL (0.55-1.3)
[2021-12-07 11:27] LABS: BILIRUBIN,TOTAL 0.8 mg/dL (0.2-1); TOT PROT 7.2 g/dl (6.4-8.2)
[2021-12-07] MEDS: TORSEMIDE 20 MG TABLET (FP) PO SCH (11:29)
[2021-12-07] MEDS: SENNOSIDES 8.6MG TABLET (FP) PO SCH (21:54)
[2021-12-07] MEDS: LATANOPROST 0.005% OPHTH SOLN 2.5ML BOTTLE OU SCH (22:14)
[2021-12-08] MEDS ORDERED: glipiZIDE 5 MG TABLET (FP) ONE ×2 (04:53→06:52)
[2021-12-08] MEDS: INSULIN SLIDING SCALE (NOVOLOG) 1 VIAL SQ SCH ×3 (06:09→16:58)
[2021-12-08] MEDS: HEPARIN NA (PORCINE) 5,000 UNITS/ML 1ML VIAL SQ SCH ×3 (06:14→21:52)
[2021-12-08] MEDS: glipiZIDE 10 MG TABLET (FP) PO SCH (06:45)
[2021-12-08] MEDS: AMINO ACIDS/PROTEIN HYDROLYS 30 ML LIQUID.PKT PO SCH ×2 (08:18→16:51)
[2021-12-08] MEDS: TIMOLOL MALEATE 0.25% GFS OPHTHALMIC SOLN 5 ML BOTTLE OU SCH (10:32)
[2021-12-08] MEDS: ZINC SULFATE 220 MG CAPSULE (FP) PO SCH (10:32)
[2021-12-08] MEDS: ASCORBIC ACID 500 MG TABLET (FP) PO SCH ×2 (10:32→21:51)
[2021-12-08] MEDS: TORSEMIDE 20 MG TABLET (FP) PO SCH (10:32)
[2021-12-08] MEDS: POTASSIUM CHLORIDE TABS 20 MEQ TABLET.ER (FP) PO SCH ×2 (10:32→21:51)
[2021-12-08] MEDS: MULTIVITAMINS THER W-MINERALS COMBO TABLET (FP) PO SCH (10:32)
[2021-12-08] MEDS: PANTOPRAZOLE 40 MG TABLET PO SCH (10:32)
[2021-12-08] MEDS: GABAPENTIN 100 MG CAPSULE PO SCH ×2 (10:32→21:51)
[2021-12-08 11:42] LABS: BASO % 0.3 % (0-2.0); EOS % 2.3 % (0-4.5); HEMATOCRIT 23.8 % (35.4-49); HEMOGLOBIN 7.5 GM/dL (11.7-16.9); LYMPH % 9.8 % (8-40); MCH 25.2 pg (25.7-33.7); MCHC 31.7 g/dl (32.0-35.9); MEAN CELL VOLUME 79.4 fl (80-96); MEAN PLT VOLUME 7.4 fl (7.5-11.1); MONO % 7.7 % (3.8-10.2); NEUT % 79.9 % (42.8-82.8); PLATELET COUNT 493 10^3/uL (134-434); RDW 16.8 % (11.9-15.9); WHITE BLOOD COUNT 8.5 K/mm3 (4.0-10.0)
[2021-12-08 12:16] LABS: CALCIUM 8.7 mg/dL (8.5-10.1)
[2021-12-08 12:17] LABS: BLOOD UREA NITROGEN 23.8 mg/dL (7-18)
[2021-12-08] MEDS: SENNOSIDES 8.6MG TABLET (FP) PO SCH ×2 (21:51→23:45)
[2021-12-08] MEDS: LATANOPROST 0.005% OPHTH SOLN 2.5ML BOTTLE OU SCH (23:46)
[2021-12-09] MEDS ORDERED: glipiZIDE 5 MG TABLET (FP) ONE (05:19)
[2021-12-09] MEDS: HEPARIN NA (PORCINE) 5,000 UNITS/ML 1ML VIAL SQ SCH ×3 (06:06→22:34)
[2021-12-09] MEDS: INSULIN SLIDING SCALE (NOVOLOG) 1 VIAL SQ SCH ×3 (06:07→16:21)
[2021-12-09] MEDS: glipiZIDE 10 MG TABLET (FP) PO SCH (06:07)
[2021-12-09] MEDS: AMINO ACIDS/PROTEIN HYDROLYS 30 ML LIQUID.PKT PO SCH ×2 (08:53→17:08)
[2021-12-09] MEDS: MULTIVITAMINS THER W-MINERALS COMBO TABLET (FP) PO SCH (09:32)
[2021-12-09] MEDS: POTASSIUM CHLORIDE TABS 20 MEQ TABLET.ER (FP) PO SCH ×2 (09:32→22:34)
[2021-12-09] MEDS: ASCORBIC ACID 500 MG TABLET (FP) PO SCH ×2 (09:32→22:33)
[2021-12-09] MEDS: TORSEMIDE 20 MG TABLET (FP) PO SCH (09:32)
[2021-12-09] MEDS: PANTOPRAZOLE 40 MG TABLET PO SCH (09:32)
[2021-12-09] MEDS: GABAPENTIN 100 MG CAPSULE PO SCH ×2 (09:33→22:34)
[2021-12-09] MEDS: ZINC SULFATE 220 MG CAPSULE (FP) PO SCH (09:33)
[2021-12-09] MEDS: TIMOLOL MALEATE 0.25% GFS OPHTHALMIC SOLN 5 ML BOTTLE OU SCH (10:18)
[2021-12-09 11:23] LABS: CALCIUM 8.7 mg/dL (8.5-10.1)
[2021-12-09 11:24] LABS: BLOOD UREA NITROGEN 21.8 mg/dL (7-18)
[2021-12-09 11:27] LABS: CREATININE 1.1 mg/dL (0.55-1.3)
[2021-12-09 13:13] LABS: ALBUMIN 1.7 g/dl (3.4-5.0)
[2021-12-09 13:18] LABS: TOT PROT 7.6 g/dl (6.4-8.2)
[2021-12-09 13:20] LABS: BILIRUBIN,DIRECT 0.2 mg/dL (0.0-0.2); BILIRUBIN,TOTAL 0.4 mg/dL (0.2-1)
[2021-12-09 17:08] LABS: ALPHA-1-ANTITRYPSIN 347 mg/dL (101-187)
[2021-12-09 21:07] LABS: GLIADIN ANTIBODY IGA 4 units (0-19); GLIADIN ANTIBODY IGG 2 units (0-19); TRANSGLUTAMINASE IGG 5 U/mL (0-5)
[2021-12-09] MEDS: SENNOSIDES 8.6MG TABLET (FP) PO SCH (22:34)
[2021-12-09] MEDS: LATANOPROST 0.005% OPHTH SOLN 2.5ML BOTTLE OU SCH (22:50)
[2021-12-10] MEDS: HEPARIN NA (PORCINE) 5,000 UNITS/ML 1ML VIAL SQ SCH ×3 (06:36→21:58)
[2021-12-10] MEDS: INSULIN SLIDING SCALE (NOVOLOG) 1 VIAL SQ SCH ×3 (06:37→18:30)
[2021-12-10] MEDS: AMINO ACIDS/PROTEIN HYDROLYS 30 ML LIQUID.PKT PO SCH ×2 (10:50→18:13)
[2021-12-10] MEDS: TORSEMIDE 20 MG TABLET (FP) PO SCH (10:51)
[2021-12-10] MEDS: PANTOPRAZOLE 40 MG TABLET PO SCH (10:51)
[2021-12-10] MEDS: POTASSIUM CHLORIDE TABS 20 MEQ TABLET.ER (FP) PO SCH ×2 (10:51→21:57)
[2021-12-10] MEDS: MULTIVITAMINS THER W-MINERALS COMBO TABLET (FP) PO SCH (10:51)
[2021-12-10] MEDS: ZINC SULFATE 220 MG CAPSULE (FP) PO SCH (10:51)
[2021-12-10] MEDS: ASCORBIC ACID 500 MG TABLET (FP) PO SCH ×2 (10:51→21:57)
[2021-12-10] MEDS: GABAPENTIN 100 MG CAPSULE PO SCH ×2 (10:51→21:57)
[2021-12-10] MEDS: TIMOLOL MALEATE 0.25% GFS OPHTHALMIC SOLN 5 ML BOTTLE OU SCH (10:52)
[2021-12-10 12:23] LABS: HEMATOCRIT 23.1 % (35.4-49); HEMOGLOBIN 7.3 GM/dL (11.7-16.9); MCH 25.2 pg (25.7-33.7); MCHC 31.4 g/dl (32.0-35.9); MEAN CELL VOLUME 80.2 fl (80-96); MEAN PLT VOLUME 7.8 fl (7.5-11.1); PLATELET COUNT 543 10^3/uL (134-434); RBC 2.89 M/mm3 (4.00-5.60); RDW 16.9 % (11.9-15.9); WHITE BLOOD COUNT 6.8 K/mm3 (4.0-10.0)
[2021-12-10 12:30] LABS: CALCIUM 8.5 mg/dL (8.5-10.1)
[2021-12-10 12:31] LABS: ALBUMIN 1.7 g/dl (3.4-5.0); BLOOD UREA NITROGEN 24.5 mg/dL (7-18)
[2021-12-10 12:32] LABS: CREATININE 1.1 mg/dL (0.55-1.3)
[2021-12-10 12:34] LABS: BILIRUBIN,DIRECT 0.2 mg/dL (0.0-0.2); BILIRUBIN,TOTAL 0.4 mg/dL (0.2-1)
[2021-12-10 12:46] LABS: ANISOCYTOSIS 1+; MACROCYTOSIS 0
[2021-12-10 13:46] LABS: INR 1.19 (0.83-1.09); PROTHROMBIN TIME (PATIENT) 13.7 SEC (9.7-13.0)
[2021-12-10] MEDS ORDERED: ACETAMINOPHEN 325 MG TABLET (FP) PO PRN (14:54)
[2021-12-10] MEDS ORDERED: ZINC OXIDE/PETROLATUM,WHITE 1 APPLIC OINT...G. TP PRN (15:04)
[2021-12-10] MEDS: COLLAGENASE CLOSTRIDIUM HIST. 30 GRAMS TUBE TP SCH (16:00)
[2021-12-10] MEDS: SENNOSIDES 8.6MG TABLET (FP) PO SCH ×2 (21:57→22:05)
[2021-12-10] MEDS: LATANOPROST 0.005% OPHTH SOLN 2.5ML BOTTLE OU SCH (22:04)
[2021-12-11] MEDS: HEPARIN NA (PORCINE) 5,000 UNITS/ML 1ML VIAL SQ SCH ×3 (06:03→23:05)
[2021-12-11] MEDS: INSULIN SLIDING SCALE (NOVOLOG) 1 VIAL SQ SCH ×3 (08:09→16:56)
[2021-12-11] MEDS: TORSEMIDE 20 MG TABLET (FP) PO SCH (09:50)
[2021-12-11] MEDS: ZINC SULFATE 220 MG CAPSULE (FP) PO SCH (09:50)
[2021-12-11] MEDS: MULTIVITAMINS THER W-MINERALS COMBO TABLET (FP) PO SCH (09:50)
[2021-12-11] MEDS: ASCORBIC ACID 500 MG TABLET (FP) PO SCH ×2 (09:50→23:03)
[2021-12-11] MEDS: AMINO ACIDS/PROTEIN HYDROLYS 30 ML LIQUID.PKT PO SCH ×2 (09:50→17:29)
[2021-12-11] MEDS: PANTOPRAZOLE 40 MG TABLET PO SCH (09:50)
[2021-12-11] MEDS: GABAPENTIN 100 MG CAPSULE PO SCH ×2 (09:50→23:04)
[2021-12-11] MEDS: POTASSIUM CHLORIDE TABS 20 MEQ TABLET.ER (FP) PO SCH ×2 (09:51→23:03)
[2021-12-11] MEDS: TIMOLOL MALEATE 0.25% GFS OPHTHALMIC SOLN 5 ML BOTTLE OU SCH (09:56)
[2021-12-11] MEDS: COLLAGENASE CLOSTRIDIUM HIST. 30 GRAMS TUBE TP SCH (09:56)
[2021-12-11 13:57] LABS: BASO % 0.9 % (0-2.0); EOS % 6.6 % (0-4.5); HEMATOCRIT 26.4 % (35.4-49); HEMOGLOBIN 8.4 GM/dL (11.7-16.9); LYMPH % 15.8 % (8-40); MCH 25.2 pg (25.7-33.7); MCHC 31.6 g/dl (32.0-35.9); MEAN CELL VOLUME 79.8 fl (80-96); MEAN PLT VOLUME 7.8 fl (7.5-11.1); NEUT % 63.7 % (42.8-82.8); PLATELET COUNT 548 10^3/uL (134-434); RBC 3.31 M/mm3 (4.00-5.60); RDW 16.9 % (11.9-15.9); WHITE BLOOD COUNT 6.5 K/mm3 (4.0-10.0)
[2021-12-11 14:03] LABS: INR 1.2 (0.83-1.09); PROTHROMBIN TIME (PATIENT) 13.8 SEC (9.7-13.0)
[2021-12-11 14:34] LABS: CALCIUM 8.4 mg/dL (8.5-10.1)
[2021-12-11 14:35] LABS: ALBUMIN 1.8 g/dl (3.4-5.0); BLOOD UREA NITROGEN 23.8 mg/dL (7-18)
[2021-12-11 14:37] LABS: BILIRUBIN,DIRECT 0.2 mg/dL (0.0-0.2)
[2021-12-11 14:38] LABS: CREATININE 1.2 mg/dL (0.55-1.3)
[2021-12-11 14:39] LABS: BILIRUBIN,TOTAL 0.5 mg/dL (0.2-1); TOT PROT 7.4 g/dl (6.4-8.2)
[2021-12-11] MEDS: SENNOSIDES 8.6MG TABLET (FP) PO SCH (23:05)
[2021-12-11] MEDS: LATANOPROST 0.005% OPHTH SOLN 2.5ML BOTTLE OU SCH (23:07)
[2021-12-12] MEDS: HEPARIN NA (PORCINE) 5,000 UNITS/ML 1ML VIAL SQ SCH ×3 (06:34→22:33)
[2021-12-12] MEDS: INSULIN SLIDING SCALE (NOVOLOG) 1 VIAL SQ SCH ×3 (08:41→17:47)
[2021-12-12] MEDS: AMINO ACIDS/PROTEIN HYDROLYS 30 ML LIQUID.PKT PO SCH ×2 (08:42→17:48)
[2021-12-12] MEDS: PANTOPRAZOLE 40 MG TABLET PO SCH (10:51)
[2021-12-12] MEDS: TORSEMIDE 20 MG TABLET (FP) PO SCH (10:51)
[2021-12-12] MEDS: POTASSIUM CHLORIDE TABS 20 MEQ TABLET.ER (FP) PO SCH ×2 (10:51→22:33)
[2021-12-12] MEDS: ZINC SULFATE 220 MG CAPSULE (FP) PO SCH (10:51)
[2021-12-12] MEDS: MULTIVITAMINS THER W-MINERALS COMBO TABLET (FP) PO SCH (10:51)
[2021-12-12] MEDS: GABAPENTIN 100 MG CAPSULE PO SCH ×2 (10:52→22:33)
[2021-12-12] MEDS: ASCORBIC ACID 500 MG TABLET (FP) PO SCH ×2 (10:52→22:33)
[2021-12-12] MEDS: COLLAGENASE CLOSTRIDIUM HIST. 30 GRAMS TUBE TP SCH (10:52)
[2021-12-12] MEDS: TIMOLOL MALEATE 0.25% GFS OPHTHALMIC SOLN 5 ML BOTTLE OU SCH (10:52)
[2021-12-12] MEDS: POLYETHYLENE GLYCOL (HEALTHYLAX) 3350 17 GM PACKET PO SCH (13:19)
[2021-12-12] MEDS: LATANOPROST 0.005% OPHTH SOLN 2.5ML BOTTLE OU SCH (22:36)
[2021-12-13] MEDS: HEPARIN NA (PORCINE) 5,000 UNITS/ML 1ML VIAL SQ SCH (06:24)
[2021-12-13] MEDS: INSULIN SLIDING SCALE (NOVOLOG) 1 VIAL SQ SCH ×3 (06:24→16:40)
[2021-12-13] MEDS: AMINO ACIDS/PROTEIN HYDROLYS 30 ML LIQUID.PKT PO SCH ×2 (09:01→18:14)
[2021-12-13] MEDS: MULTIVITAMINS THER W-MINERALS COMBO TABLET (FP) PO SCH (09:24)
[2021-12-13] MEDS: ZINC SULFATE 220 MG CAPSULE (FP) PO SCH (09:24)
[2021-12-13] MEDS: POLYETHYLENE GLYCOL (HEALTHYLAX) 3350 17 GM PACKET PO SCH (09:25)
[2021-12-13] MEDS: GABAPENTIN 100 MG CAPSULE PO SCH ×2 (09:25→21:11)
[2021-12-13] MEDS: ASCORBIC ACID 500 MG TABLET (FP) PO SCH ×2 (09:25→21:12)
[2021-12-13] MEDS: COLLAGENASE CLOSTRIDIUM HIST. 30 GRAMS TUBE TP SCH (09:27)
[2021-12-13] MEDS: PANTOPRAZOLE 40 MG TABLET PO SCH (09:27)
[2021-12-13 09:58] LABS: BASO % 0.5 % (0-2.0); EOS % 9.2 % (0-4.5); HEMATOCRIT 27.3 % (35.4-49); HEMOGLOBIN 8.6 GM/dL (11.7-16.9); LYMPH % 17.3 % (8-40); MCH 25.2 pg (25.7-33.7); MCHC 31.4 g/dl (32.0-35.9); MEAN CELL VOLUME 80.5 fl (80-96); MEAN PLT VOLUME 7.8 fl (7.5-11.1); MONO % 9.1 % (3.8-10.2); NEUT % 63.9 % (42.8-82.8); PLATELET COUNT 594 10^3/uL (134-434); RBC 3.39 M/mm3 (4.00-5.60); RDW 17.4 % (11.9-15.9); WHITE BLOOD COUNT 6.6 K/mm3 (4.0-10.0)
[2021-12-13 10:12] LABS: BLOOD UREA NITROGEN 24.9 mg/dL (7-18); CALCIUM 8.4 mg/dL (8.5-10.1)
[2021-12-13 10:13] LABS: ALBUMIN 1.9 g/dl (3.4-5.0)
[2021-12-13 10:15] LABS: BILIRUBIN,DIRECT 0.1 mg/dL (0.0-0.2); CREATININE 1.3 mg/dL (0.55-1.3)
[2021-12-13] MEDS: TIMOLOL MALEATE 0.25% GFS OPHTHALMIC SOLN 5 ML BOTTLE OU SCH (10:16)
[2021-12-13 10:17] LABS: BILIRUBIN,TOTAL 0.3 mg/dL (0.2-1); TOT PROT 7.4 g/dl (6.4-8.2)
[2021-12-13] MEDS: TORSEMIDE 20 MG TABLET (FP) PO SCH (10:53)
[2021-12-13] MEDS: POTASSIUM CHLORIDE TABS 20 MEQ TABLET.ER (FP) PO SCH ×2 (10:53→21:12)
[2021-12-13] MEDS: LATANOPROST 0.005% OPHTH SOLN 2.5ML BOTTLE OU SCH (21:12)
[2021-12-14] MEDS: INSULIN SLIDING SCALE (NOVOLOG) 1 VIAL SQ SCH ×3 (06:36→16:28)
[2021-12-14] MEDS: AMINO ACIDS/PROTEIN HYDROLYS 30 ML LIQUID.PKT PO SCH ×2 (08:37→16:31)
[2021-12-14 09:42] LABS: BASO % 0.5 % (0-2.0); EOS % 7.8 % (0-4.5); HEMATOCRIT 26.9 % (35.4-49); HEMOGLOBIN 8.4 GM/dL (11.7-16.9); LYMPH % 15.2 % (8-40); MCH 25.2 pg (25.7-33.7); MCHC 31.2 g/dl (32.0-35.9); MEAN CELL VOLUME 80.6 fl (80-96); MEAN PLT VOLUME 7.5 fl (7.5-11.1); MONO % 10.2 % (3.8-10.2); NEUT % 66.3 % (42.8-82.8); PLATELET COUNT 589 10^3/uL (134-434); RBC 3.34 M/mm3 (4.00-5.60); RDW 17.1 % (11.9-15.9)
[2021-12-14 09:54] LABS: CALCIUM 8.7 mg/dL (8.5-10.1)
[2021-12-14 09:55] LABS: ALBUMIN 1.9 g/dl (3.4-5.0); BLOOD UREA NITROGEN 23.1 mg/dL (7-18)
[2021-12-14 09:57] LABS: BILIRUBIN,DIRECT 0.1 mg/dL (0.0-0.2)
[2021-12-14 09:58] LABS: CREATININE 1.2 mg/dL (0.55-1.3)
[2021-12-14 09:59] LABS: BILIRUBIN,TOTAL 0.3 mg/dL (0.2-1); TOT PROT 7.2 g/dl (6.4-8.2)
[2021-12-14] MEDS: POLYETHYLENE GLYCOL (HEALTHYLAX) 3350 17 GM PACKET PO SCH (10:30)
[2021-12-14] MEDS: MULTIVITAMINS THER W-MINERALS COMBO TABLET (FP) PO SCH (10:31)
[2021-12-14] MEDS: ZINC SULFATE 220 MG CAPSULE (FP) PO SCH (10:31)
[2021-12-14] MEDS: GABAPENTIN 100 MG CAPSULE PO SCH ×2 (10:31→22:03)
[2021-12-14] MEDS: PANTOPRAZOLE 40 MG TABLET PO SCH (10:31)
[2021-12-14] MEDS: ASCORBIC ACID 500 MG TABLET (FP) PO SCH ×2 (10:32→22:03)
[2021-12-14] MEDS: COLLAGENASE CLOSTRIDIUM HIST. 30 GRAMS TUBE TP SCH (10:41)
[2021-12-14] MEDS: TIMOLOL MALEATE 0.25% GFS OPHTHALMIC SOLN 5 ML BOTTLE OU SCH (10:42)
[2021-12-14] MEDS: TORSEMIDE 20 MG TABLET (FP) PO SCH (12:08)
[2021-12-14] MEDS: POTASSIUM CHLORIDE TABS 20 MEQ TABLET.ER (FP) PO SCH ×2 (12:09→22:03)
[2021-12-14] MEDS: ENOXAPARIN NA (PORCINE) 40 MG/0.4 ML DISP.SYRIN SQ SCH (14:09)
[2021-12-14] MEDS ORDERED: BISACODYL 5 MG TABLET.DR (FP) PO ONE (16:00)
[2021-12-14] MEDS ORDERED: PEG 3350/NA SULF BICARB CL/KCL 4000 ML SOLN.RECON PO ONE (17:00)
[2021-12-14] MEDS: LATANOPROST 0.005% OPHTH SOLN 2.5ML BOTTLE OU SCH (22:03)
[2021-12-15] MEDS: guaiFENesin 200 MG/10 ML 10 ML UNIT-DOSE CUPS PO PRN (06:18)
[2021-12-15] MEDS: INSULIN SLIDING SCALE (NOVOLOG) 1 VIAL SQ SCH ×3 (06:30→16:56)
[2021-12-15] MEDS: AMINO ACIDS/PROTEIN HYDROLYS 30 ML LIQUID.PKT PO SCH ×3 (09:00→17:45)
[2021-12-15] MEDS: TORSEMIDE 20 MG TABLET (FP) PO SCH (09:06)
[2021-12-15] MEDS: POLYETHYLENE GLYCOL (HEALTHYLAX) 3350 17 GM PACKET PO SCH ×2 (09:06→09:30)
[2021-12-15] MEDS: MULTIVITAMINS THER W-MINERALS COMBO TABLET (FP) PO SCH (09:06)
[2021-12-15] MEDS: GABAPENTIN 100 MG CAPSULE PO SCH ×2 (09:06→21:44)
[2021-12-15] MEDS: ASCORBIC ACID 500 MG TABLET (FP) PO SCH ×2 (09:07→21:44)
[2021-12-15] MEDS: PANTOPRAZOLE 40 MG TABLET PO SCH (09:07)
[2021-12-15] MEDS: ENOXAPARIN NA (PORCINE) 40 MG/0.4 ML DISP.SYRIN SQ SCH (09:07)
[2021-12-15] MEDS: POTASSIUM CHLORIDE TABS 20 MEQ TABLET.ER (FP) PO SCH ×2 (09:07→21:44)
[2021-12-15] MEDS: ZINC SULFATE 220 MG CAPSULE (FP) PO SCH (09:07)
[2021-12-15] MEDS: COLLAGENASE CLOSTRIDIUM HIST. 30 GRAMS TUBE TP SCH (09:22)
[2021-12-15] MEDS: TIMOLOL MALEATE 0.25% GFS OPHTHALMIC SOLN 5 ML BOTTLE OU SCH (09:23)
[2021-12-15] MEDS ORDERED: DEXMEDETOMIDINE HCL 200 MCG/2 ML IVPB ONE (11:01)
[2021-12-15 11:04] LABS: BASO % 0.4 % (0-2.0); EOS % 6.4 % (0-4.5); HEMATOCRIT 28.3 % (35.4-49); HEMOGLOBIN 8.8 GM/dL (11.7-16.9); LYMPH % 15.8 % (8-40); MCH 25.2 pg (25.7-33.7); MCHC 31.1 g/dl (32.0-35.9); MEAN CELL VOLUME 80.9 fl (80-96); MEAN PLT VOLUME 7.4 fl (7.5-11.1); MONO % 12.5 % (3.8-10.2); NEUT % 64.9 % (42.8-82.8); PLATELET COUNT 608 10^3/uL (134-434); RDW 17.8 % (11.9-15.9); WHITE BLOOD COUNT 7.4 K/mm3 (4.0-10.0)
[2021-12-15 11:05] LABS: INR 1.21 (0.83-1.09)
[2021-12-15 11:21] LABS: CALCIUM 9.1 mg/dL (8.5-10.1)
[2021-12-15 11:22] LABS: BLOOD UREA NITROGEN 20.3 mg/dL (7-18)
[2021-12-15 11:24] LABS: BILIRUBIN,DIRECT 0.1 mg/dL (0.0-0.2)
[2021-12-15 11:26] LABS: BILIRUBIN,TOTAL 0.3 mg/dL (0.2-1); TOT PROT 7.6 g/dl (6.4-8.2)
[2021-12-15] MEDS: LATANOPROST 0.005% OPHTH SOLN 2.5ML BOTTLE OU SCH (21:45)
[2021-12-16] MEDS: INSULIN SLIDING SCALE (NOVOLOG) 1 VIAL SQ SCH ×3 (06:11→17:24)
[2021-12-16] MEDS: AMINO ACIDS/PROTEIN HYDROLYS 30 ML LIQUID.PKT PO SCH ×2 (08:15→17:27)
[2021-12-16] MEDS: POTASSIUM CHLORIDE TABS 20 MEQ TABLET.ER (FP) PO SCH ×2 (10:15→21:10)
[2021-12-16] MEDS: TORSEMIDE 20 MG TABLET (FP) PO SCH (10:15)
[2021-12-16] MEDS: POLYETHYLENE GLYCOL (HEALTHYLAX) 3350 17 GM PACKET PO SCH (10:15)
[2021-12-16] MEDS: GABAPENTIN 100 MG CAPSULE PO SCH ×2 (10:16→21:10)
[2021-12-16] MEDS: PANTOPRAZOLE 40 MG TABLET PO SCH (10:16)
[2021-12-16] MEDS: MULTIVITAMINS THER W-MINERALS COMBO TABLET (FP) PO SCH (10:16)
[2021-12-16] MEDS: ZINC SULFATE 220 MG CAPSULE (FP) PO SCH (10:16)
[2021-12-16] MEDS: COLLAGENASE CLOSTRIDIUM HIST. 30 GRAMS TUBE TP SCH ×2 (10:17→15:56)
[2021-12-16] MEDS: ASCORBIC ACID 500 MG TABLET (FP) PO SCH ×2 (10:17→21:10)
[2021-12-16] MEDS: TIMOLOL MALEATE 0.25% GFS OPHTHALMIC SOLN 5 ML BOTTLE OU SCH (10:17)
[2021-12-16] MEDS ORDERED: MIDAZOLAM HCL 2 MG/2 ML SINGLE DOSE VIAL ONE (12:28)
[2021-12-16] MEDS ORDERED: KETAMINE HCL 500 MG/10 ML VIAL ONE (13:04)
[2021-12-16] MEDS ORDERED: LIDOCAINE VISCOUS 2% ORAL/TOP 15 ML UNIT-DOSE CUP PO ONE (13:41)
[2021-12-16] MEDS: ENOXAPARIN NA (PORCINE) 40 MG/0.4 ML DISP.SYRIN SQ SCH (17:28)
[2021-12-16 18:16] VITALS: RESP 18
[2021-12-16] MEDS: LATANOPROST 0.005% OPHTH SOLN 2.5ML BOTTLE OU SCH (21:11)
[2021-12-17] MEDS: INSULIN SLIDING SCALE (NOVOLOG) 1 VIAL SQ SCH ×3 (06:33→16:26)
[2021-12-17] MEDS: ENOXAPARIN NA (PORCINE) 40 MG/0.4 ML DISP.SYRIN SQ SCH (10:07)
[2021-12-17] MEDS: ASCORBIC ACID 500 MG TABLET (FP) PO SCH (10:07)
[2021-12-17] MEDS: GABAPENTIN 100 MG CAPSULE PO SCH (10:07)
[2021-12-17] MEDS: AMINO ACIDS/PROTEIN HYDROLYS 30 ML LIQUID.PKT PO SCH ×2 (10:07→18:04)
[2021-12-17] MEDS: TIMOLOL MALEATE 0.25% GFS OPHTHALMIC SOLN 5 ML BOTTLE OU SCH (10:08)
[2021-12-17] MEDS: POLYETHYLENE GLYCOL (HEALTHYLAX) 3350 17 GM PACKET PO SCH (10:08)
[2021-12-17] MEDS: PANTOPRAZOLE 40 MG TABLET PO SCH (10:08)
[2021-12-17] MEDS: POTASSIUM CHLORIDE TABS 20 MEQ TABLET.ER (FP) PO SCH (10:08)
[2021-12-17] MEDS: ZINC SULFATE 220 MG CAPSULE (FP) PO SCH (10:08)
[2021-12-17] MEDS: TORSEMIDE 20 MG TABLET (FP) PO SCH (10:08)
[2021-12-17] MEDS: MULTIVITAMINS THER W-MINERALS COMBO TABLET (FP) PO SCH (10:08)
[2021-12-17] MEDS: COLLAGENASE CLOSTRIDIUM HIST. 30 GRAMS TUBE TP SCH (12:05)
[2021-12-17 13:20] LABS: BASO % 0.9 % (0-2.0); EOS % 5.3 % (0-4.5); HEMOGLOBIN 9.2 GM/dL (11.7-16.9); MCH 25.6 pg (25.7-33.7); MCHC 31.7 g/dl (32.0-35.9); MEAN PLT VOLUME 7.8 fl (7.5-11.1); MONO % 13.1 % (3.8-10.2); NEUT % 62.7 % (42.8-82.8); PLATELET COUNT 639 10^3/uL (134-434); RBC 3.59 M/mm3 (4.00-5.60); RDW 17.5 % (11.9-15.9)
[2021-12-17 14:34] VITALS: BP 96/57; PULSE 93; TEMP 98.4
== END 2021-12-17 19:32 | DRG 871 ==
LOC: JER 18:24 → JERBED 21:26 → J4W 11-23 04:59 → J5S 11-27 20:15 → J6S 12-09 00:40
PROVIDERS: ADMIT Internal Medicine; ATTEND Internal Medicine
PROC: 30233N1 Transfusion of Nonautologous Red Blood Cells into Peripheral Vein, Percutaneous Approach (ICD-10-PCS; 2021-12-11)
PROC: 0DJD8ZZ Inspection of Lower Intestinal Tract, Via Natural or Artificial Opening Endoscopic (ICD-10-PCS; 2021-12-15)
PROC: 0DJ08ZZ Inspection of Upper Intestinal Tract, Via Natural or Artificial Opening Endoscopic (ICD-10-PCS; principal; 2021-12-16 12:30)
DX: A41.9 Sepsis, unspecified organism (principal); J96.21 Acute and chronic respiratory failure with hypoxia; J96.22 Acute and chronic respiratory failure with hypercapnia; G92.8 Other toxic encephalopathy; I50.32 Chronic diastolic (congestive) heart failure; I13.0 Hypertensive heart and chronic kidney disease with heart failure and stage 1 through stage 4 chronic kidney disease, or unspecified chronic kidney disease; J44.1 Chronic obstructive pulmonary disease with (acute) exacerbation; Z68.42 Body mass index [BMI] 45.0-49.9, adult; N17.9 Acute kidney failure, unspecified; L03.115 Cellulitis of right lower limb; L97.909 Non-pressure chronic ulcer of unspecified part of unspecified lower leg with unspecified severity; L03.116 Cellulitis of left lower limb; E11.51 Type 2 diabetes mellitus with diabetic peripheral angiopathy without gangrene; E11.649 Type 2 diabetes mellitus with hypoglycemia without coma; E11.22 Type 2 diabetes mellitus with diabetic chronic kidney disease; E66.01 Morbid (severe) obesity due to excess calories; N18.9 Chronic kidney disease, unspecified; D64.9 Anemia, unspecified; E78.5 Hyperlipidemia, unspecified; J44.9 Chronic obstructive pulmonary disease, unspecified; I49.5 Sick sinus syndrome; F17.210 Nicotine dependence, cigarettes, uncomplicated; D72.829 Elevated white blood cell count, unspecified; R74.01 Elevation of levels of liver transaminase levels; K44.9 Diaphragmatic hernia without obstruction or gangrene; K64.8 Other hemorrhoids
CPT/HCPCS: 0241U-QW; 36415; 36430; 36600; 71045-TC-FY; 73590-TC-LT-FY; 73590-TC-RT-FY; 73610-TC-LT-FY; 73610-TC-RT-FY; 73630-TC-LT; 73630-TC-RT-FY; 76700-TC; 76775-TC; 80048; 80053; 80076; 80307; 81003; 82103; 82550; 82553; 82570; 82728; 82784; 82803; 82962; 82977; 83036; 83516; 83540; 83550; 83605; 83735; 83880; 84100; 84153; 84155; 84156; 84165; 84300; 84484; 85025; 85045; 85610; 85651; 85730; 86038; 86140; 86334; 86705; 86708; 86803; 86850; 86900; 86901; 86922; 87040; 87070; 87086; 87186; 87205; 87340; 87517; 87522; 93005; 93010; 93306-TC; 93922; 93925-TC; 93970-TC; 94640; 94660; 97116-GP; 97163-GP; 99285-25; C9803-CS; J0878; J1644; P9058; U0003; U0005